=== PATIENT | male | born 1995 | race Hispanic/Latino ===

== ENCOUNTER 2018-05-24 18:29 | Emergency (ER) | payer OTHER ==
[2018-05-24] MEDS ORDERED: KETOROLAC TROMETHAMINE 30MG/ML ONE (20:04)
== END 2018-05-24 20:15 | disposition home or self-care (01) ==
LOC: EDBD 18:29 → EDH 18:29
DX: S09.8XXA Other specified injuries of head, initial encounter (principal); Y04.0XXA Assault by unarmed brawl or fight, initial encounter; Y93.89 Activity, other specified; Y92.69 Other specified industrial and construction area as the place of occurrence of the external cause; Y99.8 Other external cause status
CPT/HCPCS: 70450; 70490; 96372; 99284; J1885